=== PATIENT | female | born 1985 | race Caucasian/White ===

== ENCOUNTER 2016-10-23 05:24 | Day surgery (SDC) | payer OTHER ==
[~2016-10-23] VITALS: Ht 144.8 cm; Wt 64.0 kg
[2016-10-23 06:41] VITALS: Ht 144.8 cm; Wt 64.0 kg
[2016-10-23 07:07] VITALS: BP 130/84; PULSE 58; RESP 16
[2016-10-23] MEDS ORDERED: FENTAnyl 50 MCG/ML VIAL ONE (07:42)
[2016-10-23] MEDS ORDERED: MIDAZOLAM 1 MG/ML 2 ML INJ ONE ×2 (07:42)
[2016-10-23 08:04] VITALS: BP 99/56; RESP 20
--- NOTE | 2016-10-23 11:18 | GILP ---
DATE OF PROCEDURE: NAME OF PROCEDURES: Esophagogastroduodenoscopy and biopsy. SURGEON: Blayne Salgado MD PREOPERATIVE DIAGNOSIS: Abdominal pain. POSTOPERATIVE DIAGNOSES 1. Gastritis with erosions. 2. Biopsy was positive for Helicobacter pylori infection. INDICATION FOR THE PROCEDURE: Ms. Kirstin Gamez is a 31-year-old female patient who had upper abdomi nal pain, not responding to therapy. The patient was scheduled for endoscopic examination for [facility]. The procedure and possible complications are well explained to the patient. The patient understood and consented to the procedure. DESCRIPTION OF PROCEDURE: Under the influence of fentanyl and Versed, the gastroscope was carefully introduced into the esophagus and under direct vision, it was advanced to the stomach and through t he pylorus into the duodenal bulb and descending duodenum. FINDINGS: ESOPHAGUS: The mucosa was normal. STOMACH: The patient had gastritis with erosions. Biopsy was positive for Helicobacter pylori infe ction. DUODENUM: Normal. She tolerated the procedure very well and there was no complication from the procedure. At the end of the procedure, she was awake with stable vital signs and she was discharged home to the care of [facility]. IMPRESSION: 1. Gastritis with erosions. 2. Gastric mucosal biopsies were positive for Helicobacter pylori test. PLAN: 1. Zantac 300 mg p.o. b.i.d. for 14 days. 2. Doxycycline 100 mg p.o. b.i.d. for 14 days. 3. Flagyl 500 mg p.o. b.i.d. for 14 days/ 4. Pepto-Bismol 2 tablets p.o. q.i.d. for 14 days. Dictated By: BLAYNE ISRAEL/BECCA Conf#: [id number] DID#: [id number]
== END 2016-10-23 13:54 | disposition home or self-care (01) ==
LOC: GIL 05:24
PROVIDERS: ATTEND Internal Medicine Gastroenterology
DX: K29.60 Other gastritis without bleeding (principal)
CPT/HCPCS: 43239; 84702; 87081; J2250; J3010; Z7610

== ENCOUNTER → 2017-08-13 | Outpatient (CLI) | END | disposition home or self-care (01) ==